=== PATIENT | female | born 1985 | race Caucasian/White ===

== ENCOUNTER 2016-12-02 18:31 | Inpatient (IN) | payer SELFPAY ==
--- NOTE | 2016-12-02 18:46 | PDOC ---
History of Present Illness <NoeTararon Escoto - Last Filed: 12/02/16 21:19> - History of Present Illness Initial Comments: 12/02/16 19:46 The patient is a 31 year old female with a past medical hx of insulin dependent diabetes who presents to the ED via EMS complaining of blood in her vomit since 1400 this afternoon. The patient reports she was driving back to her home at 1800. She notes she did not feel well and continued to vomit blood. She reports body aches and headache so she pulled over and called the ambulance. The last time she took her insulin was Thursday (4 days ago). She reports the last time she had these symptoms she was in DKA and was hospitalized. She is concerned she is in DKA again. Surgical: None Allergies: NKDA <Zaida Moncada - Last Filed: 12/02/16 21:45> - General Stated Complaint: VOMITING BLOOD Time Seen by Provider: 12/02/16 18:45 Past History <Tara iLu - Last Filed: 12/02/16 21:19> <Zaida Moncada - Last Filed: 12/02/16 21:45> - Past Medical History Allergies/Adverse Reactions: Allergies Allergy/AdvReac Type Severity Reaction Status Date / Time No Known Allergies Allergy Verified 12/02/16 20:13 Home Medications: Ambulatory Orders Insulin Glargine,Hum.rec.anlog [Lantus (nf)] 32 units SQ HS 12/02/16 Insulin Lispro [Humalog] 0 unit SQ ASDIR 12/02/16 Insulin Lispro [Humalog] 5 unit SQ AC 12/02/16 Insulin Lispro [Humalog] 5 unit SQ HS 12/02/16 Review of Systems - Review of Systems Able to Perform ROS?: Yes Comments:: 12/02/16 19:47 CONSTITUTIONAL: +Body aches. Absent: fever, chills, diaphoresis, generalized weakness, malaise, loss of appetite HEENT: Absent: rhinorrhea, nasal congestion, throat pain, throat swelling, difficulty swallowing, mouth swelling, ear pain, eye pain, visual Changes CARDIOVASCULAR: Absent: chest pain, syncope, palpitations, irregular heart rate, lightheadedness , peripheral edema RESPIRATORY: Absent: cough, shortness of breath, dyspnea with exertion, orthopnea, wheezing, stridor, hemoptysis GASTROINTESTINAL: +Vomiting. Absent: abdominal pain, abdominal distension, nausea, vomiting, diarrhea, constipation, melena, hematochezia GENITOURINARY: Absent: dysuria, frequency, urgency, hesitancy, hematuria, flank pain, genital pain MUSCULOSKELETAL: Absent: myalgia, arthralgia, joint swelling SKIN: Absent: rash, itching, pallor NEUROLOGIC: +Headache. Absent: focal weakness or paresthesias, dizziness, unsteady gait, seizure, mental status changes, bladder or bowel incontinence PSYCHIATRIC: Absent: anxiety, depression, suicidal or homicidal ideation, hallucinations. <Zaida Moncada - Last Filed: 12/02/16 21:45> *Physical Exam - Physical Exam Comments: 12/02/16 19:47 GENERAL: Well developed, well nourished. Awake and alert. No acute distress. HEENT: +Dry mucous membranes. Normocephalic, atraumatic. PERRLA, EOMI. No conjunctival pallor. Sclera are non-icteric. Oropharynx is clear. NECK: Supple. Full ROM. No JVD. Carotid pulses 2+ and symmetric, without bruits. No thyromegaly. No lymphadenopathy. CARDIOVASCULAR: Regular rate and rhythm. No murmurs, rubs, or gallops. Distal pulses are 2+ and symmetric. PULMONARY: No evidence of respiratory distress. Lungs clear to auscultation bilaterally. No wheezing, rales or rhonchi. ABDOMINAL: Soft. Non-tender. Non-distended. No rebound or guarding. No organomegaly. Normoactive bowel sounds. MUSCULOSKELETAL Normal range of motion at all joints. No bony deformities or tenderness. No CVA tenderness. EXTREMITIES: No cyanosis. No clubbing. No edema. No calf tenderness. SKIN: Warm and dry. Normal capillary refill. No rashes. No jaundice. NEUROLOGICAL: Alert, awake, appropriate. Cranial nerves 2-12 intact. No deficits to light touch and temperature in face, upper extremities and lower extremities. No motor deficits in the in face, upper extremities and lower extremities. PSYCHIATRIC: Cooperative. Good eye contact. Appropriate mood and affect. <Zaida Moncada - Last Filed: 12/02/16 21:45> ED Treatment Course - LABORATORY CBC & Chemistry Diagram: 12/02/16 19:04 12/02/16 19:04 <Tara Liu - Last Filed: 12/02/16 21:19> - LABORATORY CBC & Chemistry Diagram: 12/02/16 19:04 12/02/16 19:04 <Zaida Moncada - Last Filed: 12/02/16 21:45> Medical Decision Making - Critical Care Time Total Critical Care Time (minutes): 40 Critical Care Statement: The care of this patient involved high complexity decision making to prevent further life threatening deterioration of the patient 's condition and/or to evalute & treat vital organ system(s) failure or risk of failure. - Medical Decision Making 12/02/16 21:[address] Lam at 21:15. Dr. Lam called at 21:19, the patients case was discussed. Dr. Lam agrees to admit the patient. <Zaida Moncada - Last Filed: 12/02/16 21:45> *DC/Admit/Observation/Transfer - Discharge Dispostion Admit: Yes <Tara Liu - Last Filed: 12/02/16 21:19> - Attestations Scribe Attestion: 12/02/16 19:46 Documentation prepared by Zaida Moncada, acting as senior medical technologist for Tara Liu MD/DO. <Zaida Moncada - Last Filed: 12/02/16 21:45> Diagnosis at time of Disposition: DKA, type 1 Qualifiers: Diabetes mellitus complication detail: without coma Qualified Code(s): E10.10 - Type 1 diabetes mellitus with ketoacidosis without coma
[2016-12-02] MEDS ORDERED: SODIUM CHLORIDE 1,000 ML IV STA ×4 (18:47→21:59)
[2016-12-02] MEDS ORDERED: ONDANSETRON 4 MG/2 ML VIAL IVPB ONE (18:47)
[2016-12-02] MEDS ORDERED: ONDANSETRON 8 MG TABLET (FP) PO ONE (19:05)
[2016-12-02 20:01] LABS: MCH 32.1 pg (25.7-33.7); MCHC 32.2 g/dl (32.0-36.0); MEAN CELL VOLUME 99.6 fl (80-96); MEAN PLT VOLUME 10.6 fl (7.5-11.1); PLATELET COUNT 265 K/MM3 (134-434); RDW 13.1 % (11.6-15.6)
[2016-12-02 20:02] LABS: URINE APPEARANCE CLEAR; URINE BILIRUBIN NEGATIVE (NEGATIVE); URINE BLOOD NEGATIVE (NEGATIVE); URINE COLOR STRAW; URINE GLUCOSE (UA) 3+ (NEGATIVE); URINE KETONE 2+ (NEGATIVE); URINE LEUK ESTERASE NEGATIVE (NEGATIVE); URINE NITRITE NEGATIVE (NEGATIVE); URINE PROTEIN NEGATIVE (NEGATIVE); URINE UROBILINOGEN NEGATIVE E.U./dl (0.2-1.0)
[2016-12-02 20:07] LABS: WHITE BLOOD COUNT 32.6 K/mm3 (4.0-10.0)
[2016-12-02 20:23] LABS: ALBUMIN 4.7 g/dl (3.4-5.0); CALCIUM 9.6 mg/dL (8.5-10.1); CREATININE 1.5 mg/dL (0.55-1.02)
[2016-12-02 20:25] LABS: TOT PROT 8.8 g/dl (6.4-8.2)
[2016-12-02] MEDS ORDERED: DEXTROSE 50%-WATER 50 ML VIAL IVPUSH ONE (20:49)
[2016-12-02] MEDS ORDERED: INSULIN REGULAR HUMAN 100 UNITS/ML *VIAL IVPUSH ONE (20:49)
[2016-12-02] MEDS ORDERED: DEXTROSE 50%-WATER 50 ML DISP.SYRIN ONE (20:51)
[2016-12-02] MEDS ORDERED: INSULIN (NOVOLOG) ASPART 100 UNITS/ML 10ML VIAL ONE (20:52)
[2016-12-02 20:54] LABS: PLATELET COMMENT2 NO CLOTTING DETECTED; PLATELET COMMENT3 FEW LARGE PLTS; PLATELET ESTIMATE ADEQUATE (NORMAL)
[2016-12-02 21:38] LABS: ARTERIAL BLD GAS O2 SATURATION 96.8 % (90-98.9)
[2016-12-02 21:39] LABS: ALLENS TEST POSITIVE; ART PUNCT SITE LEFT RADIAL; ARTERIAL BLOOD GAS pH 7.12 (7.35-7.45); PT. ON O2? NO; TYPE OF O2 ROOM AIR
[2016-12-02] MEDS ORDERED: INSULIN REGULAR 100 UNITS in SODIUM CHLORIDE 99 ML IVPB SCH (22:00)
--- NOTE | 2016-12-02 23:14 | CONSULT ---
Consult Consult Specialty:: Pulm/CC - History of Present Illness History of Present Illness: Pt is a 31yr old woman with PMHx of DM1. Per report pt has not taken her insulin since 11/28. Now presenting with DKA symptoms and blood streaked vomit. In the ER found to have WBC 32.6 (6 bands), h/h 16.2/50.3 K 7.2 (hemolyzed) BUN/ Cr 22/1.5, serum glucose 536 3+ glucose in urine with 2+ ketones and 3+ serum acetone. Initial vital signs 117/87, HR 147, 98.7, RR 35, 98% ABG 7.12/12.8/123/ 4. Pt started on IVF, given insulin and admitted to the ICU for further management. Upon initial assessment in the ER pt tachypneic and endorsing difficulty with breathing. When later assessed in the ICU pt on NC and endorsing improved breathing without current chest pain/headache. 114/69, HR 120s (sinus on tele) 100% on NC, RR 24. - History Source History Provided By: Patient, Medical Record Limitations to Obtaining History: No Limitations - Smoking History Smoking history: Current every day smoker Aproximately how many cigarettes per day: 30 Home Medications - Allergies Allergies/Adverse Reactions: Allergies Allergy/AdvReac Type Severity Reaction Status Date / Time No Known Allergies Allergy Verified 12/02/16 20:13 - Home Medications Home Medications: Ambulatory Orders Insulin Glargine,Hum.rec.anlog [Lantus (nf)] 32 units SQ HS 12/02/16 Insulin Lispro [Humalog] 0 unit SQ ASDIR 12/02/16 Insulin Lispro [Humalog] 5 unit SQ AC 12/02/16 Insulin Lispro [Humalog] 5 unit SQ HS 12/02/16 Review of Systems - Review of Systems Cardiovascular: reports: Other (chest "fullness" now resolved) Respiratory: reports: SOB Gastrointestinal: reports: Vomiting, Vomiting Blood (blood streaked, no coffee ground) Genitourinary: denies: Dysuria Neurological: denies: Headache Physical Exam Vital Signs: Vital Signs Period Temp Pulse Resp BP Sys/Cedeno Pulse Ox Last 24 Hr 98 F-98.7 F 125-147 16-35 114-120/69-87 98-98 Intake & Output 04/0212/01/16 12/02/16 12/03/16 23:59 23:59 23:59 23:59 Weight 107 lb 5 oz Constitutional: Yes: Well Nourished, Other (in ER in mild/mod distress, now in NAD) Eyes: Yes: WNL, PERRL HENT: Yes: Other ("hairy" black tongue consistent with thrush. dry mucosa/lips) Cardiovascular: Yes: Tachycardia (sinus on tele), S1, S2 Respiratory: Yes: On Nasal O2, Tachypnea. No: Rhonchi, Wheezes Gastrointestinal: Yes: Normal Bowel Sounds, Soft. No: Tenderness ...Rectal Exam: Yes: Deferred Renal/: Yes: Other. No: CVA Tenderness - Left, CVA Tenderness - Right Extremities: Yes: WNL Edema: No Peripheral Pulses WNL: (+2 bilateral pedal pulses) Neurological: Yes: WNL Psychiatric: Yes: WNL Labs: Abnormal Lab Results 12/02/16 12/02/16 12/02/16 19:04 19:04 19:04 WBC 32.6 H* Hgb 16.2 H Hct 50.3 H MCV 99.6 H Neutrophils % 89.0 H Lymphocytes % 1.0 L ABG pH ABG pCO2 at Pt Temp ABG pO2 at Pt Temp ABG HCO3 ABG Base Excess Sodium 127 L Potassium 7.2 H* Chloride 86 L Carbon Dioxide 8 L Anion Gap 33 H BUN 22 H Creatinine 1.5 H Random Glucose 536 H* Lactic Acid Calcium AST 12 L Total Protein 8.8 H Urine Glucose (UA) 3+ H Urine Ketones 2+ H Acetone, Qual 12/02/16 12/02/16 12/02/16 19:04 21:24 22:31 WBC Hgb Hct MCV Neutrophils % Lymphocytes % ABG pH 7.12 L* ABG pCO2 at Pt Temp 12.8 L* ABG pO2 at Pt Temp 123.0 H ABG HCO3 4.0 L* ABG Base Excess -25.0 L* Sodium Potassium 5.9 H Chloride Carbon Dioxide 8 L Anion Gap 27 H BUN 19 H Creatinine 1.2 H Random Glucose 383 H* D Lactic Acid Calcium 8.1 L AST Total Protein Urine Glucose (UA) Urine Ketones Acetone, Qual Positive large 3+ H 12/02/16 22:31 WBC Hgb Hct MCV Neutrophils % Lymphocytes % ABG pH ABG pCO2 at Pt Temp ABG pO2 at Pt Temp ABG HCO3 ABG Base Excess Sodium Potassium Chloride Carbon Dioxide Anion Gap BUN Creatinine Random Glucose Lactic Acid 2.996 H* Calcium AST Total Protein Urine Glucose (UA) Urine Ketones Acetone, Qual Assessment/Plan Pt is a 31yr old woman with PMHx of DM1. Now in the ICU for management of DKA and leukocytosis. Pulm: -o2 support prn -Incentive spirometer ID: leukocytosis, likely reactionary -f/u cultures -Empiric Ceftriaxone started -Unlikely pulm infectious process but given significant leukocytosis will get chest xray to rule out -f/u lactic acid Endo: -Insulin drip, will bridge to subq when glucose <250, anion gap closed and tolerating PO -BGM -Advance diet as tolerated -Consult Renal -Aggressive IVF + K if needed (currently hypERkalemic) -Monitor electrolytes -I/Os -Monitor BUN/Cr, elevation likely secondary to dehydration Cardiac: pt endorsed now resolved "chest fullness" -f/u enzymes -Tachycardia likely in setting of dehydration, continue to monitor Neuro -Pain management prn Social: -Access for social work need as pt with known DM1 and did not take insulin in 4 days Prophylactic -DVT -Nicotine patch \\
[2016-12-02] MEDS ORDERED: SODIUM CHLORIDE 1,000 ML IV SCH (23:15)
[2016-12-02 23:23] VITALS: BMI 19.6
[2016-12-02] MEDS ORDERED: NICOTINE 21 MG/24 HOURS TOPICAL PATCH TD ONE (23:30)
[2016-12-02] MEDS ORDERED: CEFTRIAXONE 50 ML ONE (23:46)
--- NOTE | 2016-12-02 23:52 | PN ---
<Marcus Cuellar - Last Filed: 12/03/16 03:10> Teaching Attending Note ATTENDING PHYSICIAN STATEMENT I saw and evaluated the patient. I reviewed the resident's note and discussed the case with the resident. I agree with the resident's findings and plan as documented. SUBJECTIVE: The patient is a 31 year old female with a past medical history of insulin dependent diabetes who presented to the emergency department via EMS for further evaluation of hematemesis since 1400 yesterday. The patient noted that her first episode of vomiting was partially digested food followed by episodes of bile and then episodes of hematemesis. The patient reported she was driving back to her home at 1800 but her symptoms worsened so she pulled over and called an ambulance. She stated that she took Pepto Bismol to treat symptoms with no relief. She noted that the last time she took her insulin was 11/30/16 ( 3 days ago). She noted that she has been hospitalized for DKA three times before after presenting with similar symptoms. She denied any sickness leading up to her current illness. PAST MEDICAL HISTORY: Diabetes (takes Lantus 32 units before bed+Humalog x4 daily+sliding scale before meals) PAST SURGICAL HISTORY: No significant history reported FAMILY HISTORY: No pertinent history reported SOCIAL HISTORY: Current 1 ppd smoker. Alcohol consumption more than socially. Former cocaine user. MEDICATIONS: Reviewed ALLERGIES: As per nursing notes OBJECTIVE: Vital Signs: Last Vital Signs Temp Pulse Resp BP Pulse Ox 99.3 F 123 H 22 108/61 98 12/03/16 02:00 12/03/16 02:00 12/03/16 02:00 12/03/16 02:00 12/02/16 22:54 Physical Exam: GENERAL: Awake, alert, and fully oriented, in no acute distress HEENT: Atraumatic. PERRLA, EOMI. Dry mucosa. No JVD LUNGS: No distress, speaks full sentences, clear to auscultation bilaterally HEART: (+) Regular rhythm, tachycardic, normal S1 and S2, no murmurs, rubs or gallops, peripheral pulses normal and equal bilaterally. ABDOMEN: Soft, nontender, normoactive bowel sounds. No guarding, no rebound. No masses EXTREMITIES: Normal inspection, Normal range of motion, no edema. No clubbing or cyanosis. NEUROLOGICAL: Cranial nerves II through XII grossly intact. Normal speech, normal gait, no focal sensorimotor deficits SKIN: Warm, Dry, normal turgor, no rashes or lesions noted. Labs: CBCD WBC 32.6 K/mm3 (4.0-10.0) H* 12/02/16 19:04 RBC 5.05 M/mm3 (3.60-5.2) 12/02/16 19:04 Hgb 16.2 GM/dL (10.7-15.3) H 12/02/16 19:04 Hct 50.3 % (32.4-45.2) H 12/02/16 19:04 MCV 99.6 fl (80-96) H 12/02/16 19:04 MCHC 32.2 g/dl (32.0-36.0) 12/02/16 19:04 RDW 13.1 % (11.6-15.6) 12/02/16 19:04 Plt Count 265 K/MM3 (134-434) 12/02/16 19:04 MPV 10.6 fl (7.5-11.1) 12/02/16 19:04 CMP Sodium 137 mmol/L (136-145) 12/03/16 01:00 Potassium 4.8 mmol/L (3.5-5.1) 12/03/16 01:00 Chloride 104 mmol/L (98-107) 12/03/16 01:00 Carbon Dioxide 14 mmol/L (21-32) L D 12/03/16 01:00 Anion Gap 19 (8-16) H 12/03/16 01:00 BUN 14 mg/dL (7-18) D 12/03/16 01:00 Creatinine 1.0 mg/dL (0.55-1.02) 12/03/16 01:00 Creat Clearance w eGFR 40.77 (>60) 12/02/16 19:04 Calcium 7.6 mg/dL (8.5-10.1) L 12/03/16 01:00 Total Bilirubin 1.0 mg/dL (0.2-1.0) 12/02/16 19:04 AST 12 U/L (15-37) L 12/02/16 19:04 ALT 22 U/L (12-78) 12/02/16 19:04 Alkaline Phosphatase 108 U/L (45-117) 12/02/16 19:04 Total Protein 8.8 g/dl (6.4-8.2) H 12/02/16 19:04 Albumin 4.7 g/dl (3.4-5.0) 12/02/16 19:04 ASSESSMENT AND PLAN : The patient is a 31 year old female with a past medical history of insulin dependent diabetes who presented to the emergency department for further evaluation of hematemesis. 1. DKA secondary to non-compliance with insulin regimen. - 10 units regular insulin IV given in ED -Start regular insulin drip -Monitor chemistry Q2H -Monitor finger stick Q1H -IV NS -Chest x-ray 2. Acute kidney injury secondary to dehydration. -IVF -Monitor bun and creatinine 3. Hyponatremia secondary to hyperglycemia -IV NS -Control glucose -Monitor sodium 4. Hyperkalemia -Regular insulin IV given -IVF -Recheck potassium 5. Leukocytosis likely reactive and secondary to dehydration -IVF -treat DKA -Monitor WBC Admit to ICU. Documentation prepared by Marcus Cuellar, acting as medical affairs specialist for Dr. Cesar Lam MD. <Cesra Lam - Last Filed: 12/03/16 03:14> Teaching Attending Note Name of Resident: Serge Farley ATTENDING PHYSICIAN STATEMENT I saw and evaluated the patient. I reviewed the resident's note and discussed the case with the resident. I agree with the resident's findings and plan as documented.
[2016-12-02 23:53] LABS: CALCIUM 8.1 mg/dL (8.5-10.1); CREATININE 1.2 mg/dL (0.55-1.02); MAGNESIUM 2.2 mg/dL (1.8-2.4); PHOSPHOROUS 4.3 mg/dL (2.5-4.9)
[2016-12-03] MEDS ORDERED: INSULIN REGULAR HUMAN 100 UNITS/ML *VIAL IVPUSH ONE (00:03)
[2016-12-03] MEDS: NYSTATIN 500,000 UNITS/5 ML SUSPENSION PO SCH ×4 (00:07→17:26)
[2016-12-03] MEDS: CEFTRIAXONE 50 ML IVPB ONE ×2 (00:07→00:09)
[2016-12-03 00:19] LABS: TROPONIN I < 0.02 ng/ml (0.00-0.05)
--- NOTE | 2016-12-03 00:39 | HP ---
CHIEF COMPLAINT: generalized weakness and nausea HISTORY OF PRESENT ILLNESS: 31 y/o F w/PMH of IDDM presents to ER after feeling generalized weakness, nausea , and vomiting approximately 10 times this afternoon. Pt states she had been compliant with taking her insulin until this Thursday. She last took her insulin on Thursday but none yesterday or today. She was driving home from her mother's house when she felt weak and nausea and felt as though they were similar symptoms she had in the past for DKA. She threw up approximately 10 ten times with the last 3 episodes having some specks of blood. She did not make it home and had pulled over to the side of road due to these symptoms and called EMS. She also felt like she had labored breathing. She last had a DKA 3 years ago and including that episode has been hospitalized for DKA 3 times in the past. She also c/o some chest tightness but doesnt describe it as pain or pressure. She also c/o palpitations and as if her heart is racing. She denies loss of consciousness, diarrhea, constipation, dysuria, fevers, or chills. She currently feels like her breathing is still labored but her nausea has improved. 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 Family History: HTN in mother Allergies No Known Allergies Allergy (Verified 12/02/16 20:13) HOME MEDICATIONS: Home Medications Medication Instructions Recorded Insulin Glargine,Hum.rec.anlog 32 units SQ HS 12/02/16 [Lantus (nf)] Insulin Lispro [Humalog] 0 unit SQ ASDIR 12/02/16 Insulin Lispro [Humalog] 5 unit SQ AC 12/02/16 Insulin Lispro [Humalog] 5 unit SQ HS 12/02/16 REVIEW OF SYSTEMS CONSTITUTIONAL: generalized weakness, malaise Absent: fever, chills, diaphoresis, loss of appetite, weight change HEENT: Absent: rhinorrhea, nasal congestion, throat pain, throat swelling, difficulty swallowing, mouth swelling, ear pain, eye pain, visual changes CARDIOVASCULAR: palpitations, irregular heart rate Absent: chest pain, syncope, lightheadedness, peripheral edema RESPIRATORY: sob Absent: cough, dyspnea with exertion, orthopnea, wheezing, stridor, hemoptysis GASTROINTESTINAL: nausea, vomiting Absent: abdominal pain, abdominal distension, diarrhea, constipation, melena, hematochezia GENITOURINARY: Absent: dysuria, frequency, urgency, hesitancy, hematuria, flank pain, genital pain MUSCULOSKELETAL: Absent: myalgia, arthralgia, joint swelling, back pain, neck pain SKIN: Absent: rash, itching, pallor HEMATOLOGIC/IMMUNOLOGIC: Absent: easy bleeding, easy bruising, lymphadenopathy, frequent infections ENDOCRINE: Absent: unexplained weight gain, unexplained weight loss, heat intolerance, cold intolerance NEUROLOGIC: Absent: headache, focal weakness or paresthesias, dizziness, unsteady gait, seizure, mental status changes, bladder or bowel incontinence PSYCHIATRIC: Absent: anxiety, depression, suicidal or homicidal ideation, hallucinations. PHYSICAL EXAMINATION Vital Signs - 24 hr 12/02/16 12/03/16 22:54 00:30 Pulse Rate 143 H Pulse Rate [ 128 H Left] Respiratory 30 H 18 Rate Blood Pressure 115/64 Blood Pressure 120/75 [Arm] O2 Sat by Pulse 98 Oximetry (%) GENERAL: Awake, alert, and fully oriented, has some difficulty speaking due to labored breathing. HEAD: Normal with no signs of trauma. EYES: extraocular movements intact, sclera anicteric, conjunctiva clear. No lid lag. EARS, NOSE, THROAT: Ears normal, nares patent, Dry mucous membranes. NECK: Normal range of motion LUNGS: Breath sounds equal, clear to auscultation bilaterally. labored breathing , sob HEART: tachycardic, normal S1 and S2 without murmur, rub or gallop. ABDOMEN: Soft, nontender, not distended, normoactive bowel sounds, no guarding, no rebound, no masses. No hepatomegaly or splenomegaly. MUSCULOSKELETAL: Normal range of motion at all joints. No bony deformities or tenderness. No CVA tenderness. UPPER EXTREMITIES: 2+ pulses, warm, well-perfused. No cyanosis. No clubbing. No peripheral edema. LOWER EXTREMITIES: 2+ pulses, warm, well-perfused. No calf tenderness. No peripheral edema. NEUROLOGICAL: Cranial nerves II-XII intact. Normal speech. Normal gait. PSYCHIATRIC: Cooperative. Good eye contact. Appropriate mood and affect. SKIN: Warm, dry, normal turgor, no rashes or lesions noted, normal capillary refill. Laboratory Results - last 24 hr 12/02/16 12/02/16 12/02/16 21:24 22:31 22:31 Puncture Site Left radial ABG pH 7.12 L* ABG pCO2 at Pt Temp 12.8 L* ABG pO2 at Pt Temp 123.0 H ABG HCO3 4.0 L* ABG O2 Sat (Measured) 96.8 ABG O2 Content 18.1 ABG Base Excess -25.0 L* Jose Daniel Test Positive O2 Delivery Device Room air Oxygen Flow Rate No PEEP 0.0 Sodium 136 Potassium 5.9 H Chloride 101 D Carbon Dioxide 8 L Anion Gap 27 H BUN 19 H Creatinine 1.2 H POC Glucometer Random Glucose 383 H* D Lactic Acid 2.996 H* Calcium 8.1 L Phosphorus 4.3 Magnesium 2.2 Creatine Kinase Troponin I 12/02/16 12/02/16 22:35 23:08 Puncture Site ABG pH ABG pCO2 at Pt Temp ABG pO2 at Pt Temp ABG HCO3 ABG O2 Sat (Measured) ABG O2 Content ABG Base Excess Jose Daniel Test O2 Delivery Device Oxygen Flow Rate PEEP Sodium Potassium Chloride Carbon Dioxide Anion Gap BUN Creatinine POC Glucometer [phone] Random Glucose Lactic Acid Calcium Phosphorus Magnesium Creatine Kinase 58 Troponin I < 0.02 Active Medications Chlorhexidine Gluconate (Hibiclens For Decolonization -) 1 applic TP HS GENE Insulin Human Regular 100 (units/ Sodium Chloride) 100 mls @ 5.35 mls/hr IVPB TITR GENE; 0.1 UNITS/KG/HR PRN Reason: Protocol Last Titration: 12/03/16 01:42 Dose: 0.04 units/kg/hr Sodium Chloride (Normal Saline -) 1,000 mls @ 250 mls/hr IV ASDIR GENE Last Admin: 12/02/16 23:06 Dose: 250 mls/hr Ceftriaxone Sodium (Rocephin 1gm Ivpb (Pre-Docked)) 50 mls @ 100 mls/hr IVPB DAILY@2200 [facility] Mupirocin (Bactroban Ointment (For Decolonization) -) 1 applic NS BID GENE Stop: 12/08/16 09:59 Nicotine (Nicoderm Patch -) 21 mg TD DAILY@2200 [facility] Nystatin (Nystatin Oral Suspension -) 500,000 units PO Q6HPO [facility] Last Admin: 12/03/16 00:07 Dose: 500,000 units ASSESSMENT/PLAN: 31 y/o F w/PMH of IDDM presents to ER after feeling generalized weakness, nausea , and vomiting approximately 10 times this afternoon. Admitted to ICU for DKA. -DKA -Insulin drip, ns @ 250 ml/hr -monitor anion gap, k+, glucose q2h -BGMs q1h -monitor lactic acid, phos, mg -monitor for arrhythmia and chest pain/pressure -pt needs education on better compliance with medications at home -Metabolic acidosis -secondary to dka -ABG in AM to monitor -treatment of DKA to resolve metabolic acidosis -Leukocytosis -32.6 WBC, monitor -f/u UCx, BCx, CXR in AM -most likely reactive to DKA -LEO -BUN/Cr on presentation 22/1.5 now at 14/1.0 -resolving, monitor -DVT ppx -SCDs -FEN -NS @ 150 ml/hr -hyponatremia, hyperkalemia, hypochloremia on presentation - now resolved, monitor -NPO -Dispo -Admit to ICU Problem List - Problem (1) DKA, type 1 Code(s): E10.10 - TYPE 1 DIABETES MELLITUS WITH KETOACIDOSIS WITHOUT COMA Qualifiers: Diabetes mellitus complication detail: without coma Qualified Code(s): E10.10 - Type 1 diabetes mellitus with ketoacidosis without coma (2) Metabolic acidosis Code(s): E87.2 - ACIDOSIS (3) Leukocytosis Code(s): D72.829 - ELEVATED WHITE BLOOD CELL COUNT, UNSPECIFIED (4) LEO (acute kidney injury) Code(s): N17.9 - ACUTE KIDNEY FAILURE, UNSPECIFIED Visit type - Emergency Visit Emergency Visit: Yes ED Registration Date: 12/02/16 Care time: The patient presented to the Emergency Department on the above date and was hospitalized for further evaluation of their emergent condition. - New Patient This patient is new to me today: Yes Date on this admission: 12/03/16 - Critical Care Critical Care patient: Yes Total Critical Care Time (in minutes): 40 Critical Care Statement: The care of this patient involved high complexity decision making to prevent further life threatening deterioration of the patient 's condition and/or to evalute & treat vital organ system(s) failure or risk of failure.
[2016-12-03] MEDS ORDERED: HEMOQUE TEST 1 EACH EACH ONE (01:12)
[2016-12-03] MEDS ORDERED: INSULIN DETEMIR 100 UNITS/ML MDV SQ ONE ×2 (02:03→05:39)
[2016-12-03 02:32] LABS: CALCIUM 7.6 mg/dL (8.5-10.1)
[2016-12-03 02:36] LABS: MAGNESIUM 1.9 mg/dL (1.8-2.4); PHOSPHOROUS 2.1 mg/dL (2.5-4.9)
[2016-12-03] MEDS ORDERED: SODIUM PHOSPHATE - 15 MM in SODIUM CHLORIDE 250 ML IVPB ONE (02:41)
[2016-12-03] MEDS ORDERED: D5-1/2NS+40 MEQ KCL - 1,000 ML IV SCH (05:30)
[2016-12-03] MEDS ORDERED: SODIUM CHLORIDE 1,000 ML IV SCH ×2 (05:45→11:33)
[2016-12-03 06:16] LABS: MCH 33.1 pg (25.7-33.7); MCHC 34.6 g/dl (32.0-36.0); MEAN CELL VOLUME 95.8 fl (80-96); MEAN PLT VOLUME 10.3 fl (7.5-11.1); PLATELET COUNT 221 K/MM3 (134-434); RDW 12.8 % (11.6-15.6); WHITE BLOOD COUNT 16.9 K/mm3 (4.0-10.0)
[2016-12-03 06:38] LABS: ALBUMIN 3.2 g/dl (3.4-5.0); ANION GAP 13 (8-16); CALCIUM 7.3 mg/dL (8.5-10.1); CO2 17 mmol/L (21-32); CREATININE 0.8 mg/dL (0.55-1.02); GLUCOSE,RANDOM 156 mg/dL (74-106); SGOT/AST 6 U/L (15-37); SGPT/ALT 14 U/L (12-78)
[2016-12-03 06:40] LABS: ALK PHOS 64 U/L (45-117); BILIRUBIN,TOTAL 0.3 mg/dL (0.2-1.0); TOT PROT 5.8 g/dl (6.4-8.2)
[2016-12-03] MEDS: INSULIN SLIDING SCALE (NOVOLOG) 1 VIAL SQ SCH ×3 (06:58→17:28)
[2016-12-03 07:41] LABS: ARTERIAL BLD GAS O2 SATURATION 97.1 % (90-98.9); ARTERIAL BLOOD GAS BASE EXCESS -8.2 meq/l (-2-2); ARTERIAL BLOOD GAS HCO3 16.6 meq/L (22-26); ARTERIAL BLOOD GAS PO2 91.6 mmHg (80-100); ARTERIAL BLOOD GAS pH 7.32 (7.35-7.45)
[2016-12-03 07:42] LABS: ALLENS TEST POSITIVE; ART PUNCT SITE LEFT RADIAL; LPM/O2% 21%; PT. ON O2? NO
[2016-12-03 07:43] LABS: TYPE OF O2 ROOM AIR
[2016-12-03 08:02] LABS: PHOSPHOROUS 3.3 mg/dL (2.5-4.9)
[2016-12-03] MEDS ORDERED: ONDANSETRON 4 MG/2 ML VIAL IVPB PRN (08:09)
--- NOTE | 2016-12-03 08:30 | PN ---
Physical Exam: SUBJECTIVE: Patient seen and examined 31 Y old female admitted for DKA. She was not taking her insulin since thursday. patient sitting comfartably in chair. stets nausea, vomiting, pain abdomen improved. Reports some discomfort in abdomen. denies chest pain, sob, palpitations. anion gap closed patient on sliding scale novalog ( got 2 units around 6:00am )and levemir (got 16 unit around 6:00 am.) patient is off insulin drip. OBJECTIVE: Vital Signs Period Temp Pulse Resp BP Sys/Cedeno Pulse Ox Last 24 Hr 99.3 F 105-143 17-30 99-120/56-75 98 GENERAL: The patient is awake, alert, and fully oriented, in no acute distress. HEAD: Normal with no signs of trauma. EYES: PERRL, extraocular movements intact, conjunctiva clear. No ptosis. ENT: Ears normal, nares patent, oropharynx clear without exudates, dry mucous membranes. NECK: Trachea midline, full range of motion, supple. LUNGS: Breath sounds equal, clear to auscultation bilaterally, no wheezes, no crackles, no accessory muscle use. HEART: s1s2 normal, no murmur ABDOMEN: Soft, nontender, nondistended, normoactive bowel sounds, no guarding, no rebound, EXTREMITIES: 2+ pulses, warm, well-perfused, no edema. NEUROLOGICAL: Cranial nerves II through XII grossly intact. Normal speech, PSYCH: Normal mood, normal affect. SKIN: Warm, dry, Laboratory Results - last 24 hr 12/02/16 12/02/16 12/02/16 21:24 22:31 22:31 WBC RBC Hgb Hct MCV MCHC RDW Plt Count MPV Puncture Site Left radial ABG pH 7.12 L* ABG pCO2 at Pt Temp 12.8 L* ABG pO2 at Pt Temp 123.0 H ABG HCO3 4.0 L* ABG O2 Sat (Measured) 96.8 ABG O2 Content 18.1 ABG Base Excess -25.0 L* Jose Daniel Test Positive O2 Delivery Device Room air Oxygen Flow Rate No PEEP 0.0 Sodium 136 Potassium 5.9 H Chloride 101 D Carbon Dioxide 8 L Anion Gap 27 H BUN 19 H Creatinine 1.2 H Creat Clearance w eGFR POC Glucometer Random Glucose 383 H* D Lactic Acid 2.996 H* Calcium 8.1 L Phosphorus 4.3 Magnesium 2.2 Total Bilirubin AST ALT Alkaline Phosphatase Creatine Kinase Troponin I Total Protein Albumin 12/02/16 12/02/16 12/03/16 22:35 23:08 00:24 WBC RBC Hgb Hct MCV MCHC RDW Plt Count MPV Puncture Site ABG pH ABG pCO2 at Pt Temp ABG pO2 at Pt Temp ABG HCO3 ABG O2 Sat (Measured) ABG O2 Content ABG Base Excess Jose Daniel Test O2 Delivery Device Oxygen Flow Rate PEEP Sodium Potassium Chloride Carbon Dioxide Anion Gap BUN Creatinine Creat Clearance w eGFR POC Glucometer 359.35207 274.74989 Random Glucose Lactic Acid Calcium Phosphorus Magnesium Total Bilirubin AST ALT Alkaline Phosphatase Creatine Kinase 58 Troponin I < 0.02 Total Protein Albumin 12/03/16 12/03/16 12/03/16 01:00 01:28 02:31 WBC RBC Hgb Hct MCV MCHC RDW Plt Count MPV Puncture Site ABG pH ABG pCO2 at Pt Temp ABG pO2 at Pt Temp ABG HCO3 ABG O2 Sat (Measured) ABG O2 Content ABG Base Excess Jose Daniel Test O2 Delivery Device Oxygen Flow Rate PEEP Sodium 137 Potassium 4.8 Chloride 104 Carbon Dioxide 14 L D Anion Gap 19 H BUN 14 D Creatinine 1.0 Creat Clearance w eGFR POC Glucometer 221.96756 185.62956 Random Glucose 212 H D Lactic Acid Calcium 7.6 L Phosphorus 2.1 L D Magnesium 1.9 Total Bilirubin AST ALT Alkaline Phosphatase Creatine Kinase Troponin I Total Protein Albumin 12/03/16 12/03/16 12/03/16 03:30 04:38 05:20 WBC RBC Hgb Hct MCV MCHC RDW Plt Count MPV Puncture Site ABG pH ABG pCO2 at Pt Temp ABG pO2 at Pt Temp ABG HCO3 ABG O2 Sat (Measured) ABG O2 Content ABG Base Excess Jose Daniel Test O2 Delivery Device Oxygen Flow Rate PEEP Sodium 139 Potassium 4.1 Chloride 109 H Carbon Dioxide 17 L D Anion Gap 13 BUN 10 D Creatinine 0.8 Creat Clearance w eGFR > 60 POC Glucometer 161.17254 153.53377 Random Glucose 156 H D Lactic Acid Calcium 7.3 L Phosphorus 3.3 D Magnesium 2.0 Total Bilirubin 0.3 D AST 6 L D ALT 14 D Alkaline Phosphatase 64 D Creatine Kinase Troponin I Total Protein 5.8 L D Albumin 3.2 L D 12/03/16 12/03/16 12/03/16 05:20 05:20 05:20 WBC 16.9 H D RBC 3.73 D Hgb 12.4 D Hct 35.7 D MCV 95.8 MCHC 34.6 RDW 12.8 Plt Count 221 MPV 10.3 Puncture Site ABG pH ABG pCO2 at Pt Temp ABG pO2 at Pt Temp ABG HCO3 ABG O2 Sat (Measured) ABG O2 Content ABG Base Excess Jose Daniel Test O2 Delivery Device Oxygen Flow Rate PEEP Sodium Cancelled Potassium Cancelled Chloride Cancelled Carbon Dioxide Cancelled Anion Gap Cancelled BUN Cancelled Creatinine Cancelled Creat Clearance w eGFR POC Glucometer Random Glucose Cancelled Lactic Acid 0.515 Calcium Cancelled Phosphorus Cancelled Magnesium Cancelled Total Bilirubin AST ALT Alkaline Phosphatase Creatine Kinase Troponin I Total Protein Albumin 12/03/16 12/03/16 05:44 07:20 WBC RBC Hgb Hct MCV MCHC RDW Plt Count MPV Puncture Site Left radial ABG pH 7.32 L D ABG pCO2 at Pt Temp 33.4 L D ABG pO2 at Pt Temp 91.6 D ABG HCO3 16.6 L ABG O2 Sat (Measured) 97.1 ABG O2 Content 16.8 ABG Base Excess -8.2 L Jose Daniel Test Positive O2 Delivery Device Room air Oxygen Flow Rate 21% PEEP 0.0 Sodium Potassium Chloride Carbon Dioxide Anion Gap BUN Creatinine Creat Clearance w eGFR POC Glucometer 172.29897 Random Glucose Lactic Acid Calcium Phosphorus Magnesium Total Bilirubin AST ALT Alkaline Phosphatase Creatine Kinase Troponin I Total Protein Albumin Active Medications Generic Name Dose Route Start Last Admin Trade Name Misaelq PRN Reason Stop Dose Admin Chlorhexidine Gluconate 1 applic 12/03/16 22:00 Hibiclens For Decolonization - TP HS GENE Ceftriaxone Sodium 50 mls @ 100 mls/hr 12/03/16 22:00 Rocephin 1gm Ivpb (Pre-Docked) IVPB DAILY@2200 GENE Sodium Chloride 1,000 mls @ 100 mls/hr 12/03/16 05:45 12/03/16 06:56 Normal Saline - IV 100 mls/hr ASDIR [facility] Administration Insulin Aspart 1 vial 12/03/16 07:00 12/03/16 06:58 Novolog Vial Sliding Scale - SQ 2 units TIDAC [facility] Administration Protocol Insulin Detemir 16 units 12/03/16 22:00 Levemir Vial SQ BID GENE Mupirocin 1 applic 12/03/16 10:00 Bactroban Ointment (For Decolonization) - NS 12/08/16 09:59 BID GENE Nicotine 21 mg 12/03/16 22:00 Nicoderm Patch - TD DAILY@2200 GENE Nystatin 500,000 units 12/03/16 00:00 12/03/16 06:58 Nystatin Oral Suspension - PO 500,000 units Q6HPO [facility] Administration Ondansetron HCl 4 mg 12/03/16 08:09 Zofran Injection IVPB Q8H PRN NAUSEA ASSESSMENT/PLAN: 31 y/o F w/PMH of IDDM presents to ER after feeling generalized weakness, nausea , and vomiting approximately 10 times this afternoon. Admitted to ICU for DKA. -DKA anion gap closed on novalog sliding scale on levemir 16 unit bid monitor blood sugar diabetic diet monitor vitals monitor intake/ output K 4.1 on IV fluid NS. -Leukocytosis wbc decreased to 16 follow blood and urine culture on ceftriaxone 1gm iv daily CXr reviewed Vomiting/ nausea -LEO improved after IV fluid could be prerenal -DVT ppx - lovenox 40 sq Gi pro : protonix 40 mg po daily -FEN NS 100ml/hr electrolyte: repaet in am nutrition ; diabetic diet Dispo- transfer to med surg Visit type - Emergency Visit Emergency Visit: Yes ED Registration Date: 12/02/16 Care time: The patient presented to the Emergency Department on the above date and was hospitalized for further evaluation of their emergent condition. - New Patient This patient is new to me today: Yes Date on this admission: 12/03/16 - Critical Care Critical Care patient: Yes Total Critical Care Time (in minutes): 45 Critical Care Statement: The care of this patient involved high complexity decision making to prevent further life threatening deterioration of the patient 's condition and/or to evalute & treat vital organ system(s) failure or risk of failure.
[2016-12-03 10:36] LABS: CALCIUM 7.4 mg/dL (8.5-10.1); CREATININE 0.7 mg/dL (0.55-1.02)
--- NOTE | 2016-12-03 11:19 | EKG ---
Test Reason : Blood Pressure : / mmHG Vent. Rate : 128 BPM Atrial Rate : 128 BPM P-R Int : 112 ms QRS Dur : 068 ms QT Int : 312 ms P-R-T Axes : 057 068 048 degrees QTc Int : 455 ms SINUS TACHYCARDIA POSSIBLE LEFT ATRIAL ENLARGEMENT BORDERLINE ECG NO PREVIOUS ECGS AVAILABLE Confirmed by IFRAH YOUNGBLOOD, KELLY ([id number]) on 12/03/2016 11:19:27 AM Referred By: MYNOR Confirmed By:KELLY RG MD
[2016-12-03 11:20] LABS: CALCIUM 7.5 mg/dL (8.5-10.1); CREATININE 0.8 mg/dL (0.55-1.02)
[2016-12-03] MEDS: MUPIROCIN 2% TOPICAL OINTMENT FOR DECOLONIZATION NS SCH ×2 (11:45→21:36)
[2016-12-03 13:38] LABS: CALCIUM 8.1 mg/dL (8.5-10.1); CREATININE 0.8 mg/dL (0.55-1.02)
--- NOTE | 2016-12-03 15:31 | PN ---
Teaching Attending Note Name of Resident: Alessandro Kearney ATTENDING PHYSICIAN STATEMENT I saw and evaluated the patient. I reviewed the resident's note and discussed the case with the resident. I agree with the resident's findings and plan as documented. SUBJECTIVE: Pt seen and examined in the ICU. AM bloodwork showing anion gap closing, transitioned to long acting insulin. Some queasiness but denies vomiting. No fevers or chills. OBJECTIVE: Last Vital Signs Temp Pulse Resp BP Pulse Ox 97.0 F L 100 H 19 97/63 100 12/03/16 10:00 12/03/16 12:00 12/03/16 12:00 12/03/16 12:00 12/03/16 08:52 Intake & Output 11/30/16 12/01/16 12/02/16 12/03/16 23:59 23:59 23:59 23:59 Intake Total 250 3280 Balance 250 3280 Weight 107 lb 5 oz 109 lb 12.8 oz Gen: listless but in NAD Heart: tachycardic, regular Lung: decreased breath sounds at the bases Abd: soft, nontender Ext: no edema CBC, BMP 12/03/16 05:20 12/03/16 14:15 Active Medications Chlorhexidine Gluconate (Hibiclens For Decolonization -) 1 applic TP HS GENE Enoxaparin Sodium (Lovenox -) 40 mg SQ DAILY [facility] Ceftriaxone Sodium (Rocephin 1gm Ivpb (Pre-Docked)) 50 mls @ 100 mls/hr IVPB DAILY@2200 [facility] Sodium Chloride (Normal Saline -) 1,000 mls @ 150 mls/hr IV ASDIR [facility] Last Admin: 12/03/16 11:47 Dose: 150 mls/hr Insulin Aspart (Novolog Vial Sliding Scale -) 1 vial SQ TIDAC [facility] PRN Reason: Protocol Last Admin: 12/03/16 11:45 Dose: 2 units Insulin Detemir (Levemir Vial) 16 units SQ BIDAC [facility] Mupirocin (Bactroban Ointment (For Decolonization) -) 1 applic NS BID GENE Stop: 12/08/16 09:59 Last Admin: 12/03/16 11:45 Dose: Not Given Nicotine (Nicoderm Patch -) 21 mg TD DAILY@2200 [facility] Nystatin (Nystatin Oral Suspension -) 500,000 units PO Q6HPO [facility] Last Admin: 12/03/16 11:48 Dose: 500,000 units Ondansetron HCl (Zofran Injection) 4 mg IVPB Q8H PRN PRN Reason: NAUSEA Pantoprazole Sodium (Protonix -) 40 mg PO DAILY [facility] ASSESSMENT AND PLAN: Diabetic Ketoacidosis improving Leukocytosis likely leukemoid reaction Smoker - titrate long acting insulin - sliding scale coverage - continue IVF - PO as tolerated - monitor BGM - monitor fever curve, WBC trend - can monitor off antibiotics - f/u cultures - OOB to chair - DVT prophylaxis - can monitor on floor
[2016-12-03 15:49] LABS: CALCIUM 7.9 mg/dL (8.5-10.1); CREATININE 0.8 mg/dL (0.55-1.02)
[2016-12-03] MEDS: INSULIN DETEMIR 100 UNITS/ML MDV SQ SCH (17:27)
[2016-12-03] MEDS ORDERED: CEFTRIAXONE 50 ML ONE (20:31)
[2016-12-03] MEDS ORDERED: CHLORHEXIDINE GLUCONATE 4% CLEANSER FOR DECOLONIZATION TP SCH (22:00)
[2016-12-03] MEDS ORDERED: CEFTRIAXONE 50 ML IVPB SCH (22:00)
[2016-12-03] MEDS ORDERED: NICOTINE 21 MG/24 HOURS TOPICAL PATCH TD SCH (22:00)
[2016-12-04] MEDS: NYSTATIN 500,000 UNITS/5 ML SUSPENSION PO SCH ×3 (00:18→12:26)
[2016-12-04 06:16] LABS: BASOPHIL 0.7 % (0-2.0); EOSINOPHIL 2.5 % (0-4.5); MCHC 34.2 g/dl (32.0-36.0); MEAN CELL VOLUME 96.7 fl (80-96); MEAN PLT VOLUME 10.5 fl (7.5-11.1); NEUTROPHILS 58.9 % (42.8-82.8); PLATELET COUNT 154 K/MM3 (134-434); WHITE BLOOD COUNT 8.1 K/mm3 (4.0-10.0)
[2016-12-04] MEDS: INSULIN SLIDING SCALE (NOVOLOG) 1 VIAL SQ SCH ×2 (06:39→11:25)
[2016-12-04] MEDS: INSULIN DETEMIR 100 UNITS/ML MDV SQ SCH (06:39)
[2016-12-04 06:45] LABS: CALCIUM 7.8 mg/dL (8.5-10.1); CREATININE 0.4 mg/dL (0.55-1.02); MAGNESIUM 1.9 mg/dL (1.8-2.4); PHOSPHOROUS 2.1 mg/dL (2.5-4.9)
[2016-12-04] MEDS ORDERED: NAPH,MB-DB/K PH,MBDB POWDER PACKET PO ONE (09:15)
[2016-12-04] MEDS ORDERED: PANTOPRAZOLE 40 MG TABLET (FP) PO SCH (10:00)
[2016-12-04] MEDS ORDERED: ENOXAPARIN NA (PORCINE) 40 MG/0.4 ML DISP.SYRIN SQ SCH (10:00)
[2016-12-04 10:37] VITALS: TEMP 98.1
[2016-12-04] MEDS: MUPIROCIN 2% TOPICAL OINTMENT FOR DECOLONIZATION NS SCH (11:22)
--- NOTE | 2016-12-04 12:06 | DS ---
Physical Exam: SUBJECTIVE: Patient seen and examined. She is oob to chair, tolerating po diet. She feels good, no nausea or vomiting. OBJECTIVE: Vital Signs Period Temp Pulse Resp BP Sys/Cedeno Pulse Ox Last 24 Hr 97.5 F-98.2 F 72-112 12-21 90-112/54-82 100-100 PE GENERAL: The patient is awake, alert, and fully oriented, in no acute distress. HEAD: Normal with no signs of trauma. EYES: PERRL, extraocular movements intact, sclera anicteric, conjunctiva clear. ENT: Ears normal, nares patent, oropharynx clear without exudates, moist mucous membranes. NECK: Trachea midline, full range of motion, supple. LUNGS: Breath sounds equal, clear to auscultation bilaterally, no wheezes, no crackles, no accessory muscle use. HEART: Regular rate and rhythm, S1, S2 without murmur, rub or gallop. ABDOMEN: Soft, nontender, nondistended, normoactive bowel sounds, no guarding, no rebound, no hepatosplenomegaly, no masses. EXTREMITIES: 2+ pulses, warm, well-perfused, no edema. NEUROLOGICAL: Cranial nerves II through XII grossly intact. Normal speech, gait not observed. PSYCH: Normal mood, normal affect. SKIN: Warm, dry, normal turgor, no rashes or lesions noted. CBCD WBC 8.1 K/mm3 (4.0-10.0) D 12/04/16 05:05 RBC 3.73 M/mm3 (3.60-5.2) 12/04/16 05:05 Hgb 12.3 GM/dL (10.7-15.3) 12/04/16 05:05 Hct 36.1 % (32.4-45.2) 12/04/16 05:05 MCV 96.7 fl (80-96) H 12/04/16 05:05 MCHC 34.2 g/dl (32.0-36.0) 12/04/16 05:05 RDW 13.0 % (11.6-15.6) 12/04/16 05:05 Plt Count 154 K/MM3 (134-434) D 12/04/16 05:05 MPV 10.5 fl (7.5-11.1) 12/04/16 05:05 CMP Sodium 142 mmol/L (136-145) 12/04/16 05:05 Potassium 3.8 mmol/L (3.5-5.1) 12/04/16 05:05 Chloride 108 mmol/L (98-107) H 12/04/16 05:05 Carbon Dioxide 25 mmol/L (21-32) D 12/04/16 05:05 Anion Gap 9 (8-16) 12/04/16 05:05 BUN 6 mg/dL (7-18) L D 12/04/16 05:05 Creatinine 0.4 mg/dL (0.55-1.02) L D 12/04/16 05:05 Creat Clearance w eGFR > 60 (>60) 12/03/16 05:20 Calcium 7.8 mg/dL (8.5-10.1) L 12/04/16 05:05 Total Bilirubin 0.3 mg/dL (0.2-1.0) D 12/03/16 05:20 AST 6 U/L (15-37) L D 12/03/16 05:20 ALT 14 U/L (12-78) D 12/03/16 05:20 Alkaline Phosphatase 64 U/L (45-117) D 12/03/16 05:20 Total Protein 5.8 g/dl (6.4-8.2) L D 12/03/16 05:20 Albumin 3.2 g/dl (3.4-5.0) L D 12/03/16 05:20 12/04/16 05:05 Phosphorus 2.1 L D Magnesium 1.9 HOSPITAL COURSE: Date of Admission:12/02/16 Date of Discharge: 12/04/16 Minutes to complete discharge: 35 Discharge Summary Reason For Visit: TYPE 1 DIABETES MELLITUS WITH KETOACIDOSIS Current Active Problems LEO (acute kidney injury) (Acute) DKA, type 1 (Acute) Leukocytosis (Acute) Metabolic acidosis (Acute) Hospital Course: Initial Hospital Course: Briefly, this 31 year old female w/PMH of IDDM presented to ER after feeling generalized weakness, nausea, and vomiting approximately 10 times this afternoon. She had been compliant with taking her insulin until this Thursday. She last took her insulin on Thursday the day before and of admission. She was driving home from her mother's house when she felt weak and nausea and felt as though they were similar symptoms she had in the past for DKA. She threw up approximately 10 ten times with the last 3 episodes having some specks of blood. She did not make it home and had pulled over to the side of road due to these symptoms and called EMS with labored breathing. She last had a DKA 3 years ago and including that episode has been hospitalized for DKA 3 times in the past. Initial Hospital Course/Progress Note/Discharge Summary by a/p: Assessment: 31 y/o F w/PMH of IDDM admitted to ICU with DKA. Plan: 1. DKA - s/p insulin gtt - Anion Gap closed - Restarted on long acting 32units lantus HS - Humulong 5 units AC - ISS ACHS per protocol - Dietary teaching done 2. Metabolic acidosis - secondary to dka - Resolved 3. Leukocytosis - Resolved, likely reactive 4. LEO - Resolved 5. Hypomagnesemia - Repleted, and resolved 6. Hypophosphatemia - Repleted k phos pks and IV Dispo: - Insulin sent to pharmacy, long and short acting - PCP follow up in 1 week - Endocrine referral enclosed - Pt aware and agrees to above plan Condition: Stable - Instructions Diet, Activity, Other Instructions: Please return to the ED for any new, persistent, or worsening symptoms. 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 or Dr Saba (referral: [phone]) Don't omit the dose of your insulin Take your insulin as prescribed Check your blood sugar regularly Referrals: Vinh Saba MD [Staff Physician] - 1 Week Disposition: HOME - Home Medications Comprehensive Discharge Medication List: Ambulatory Orders Alcohol Antiseptic Pads [Easy Touch Alcohol Prep Pads] 1 each TP ACHS #60 med..pad 12/04/16 Insulin Glargine,Hum.rec.anlog [Lantus Solostar PEN (NF)] 32 units SQ HS #1 pen 12/04/16 Insulin Lispro [Humalog] 5 unit SQ AC #1 ml 12/04/16 Insulin Lispro [Humalog] See Protocol SQ ACHS #1 vial 12/04/16 Lancets [Accu-Chek] 1 each MC ACHS #30 each 12/04/16 Miscellaneous Medical Supply [Glucometer Device] 1 each SQ ASDIR #1 kit [employer]isc[employer] [Glucometer Test Strips #50] 1 each ASDIR #1 box 12/04/16 Syringe and Needle,Insulin,1Ml [Insulin Syringe] 1 each [facility] #30 disp.syrin 12/04/16 This patient is new to me today: Yes Date on this admission: 12/04/16 Emergency Visit: Yes ED Registration Date: 12/02/16 Care time: The patient presented to the Emergency Department on the above date and was hospitalized for further evaluation of their emergent condition. Critical Care patient: Yes Total Critical Care Time (in minutes): 35 Critical Care Statement: The care of this patient involved high complexity decision making to prevent further life threatening deterioration of the patient 's condition and/or to evalute & treat vital organ system(s) failure or risk of failure. - Discharge Referral Referred to [facility] Med P.C.: No
[2016-12-04 12:25] VITALS: BP 117/77; PULSE 82
--- NOTE | 2016-12-04 12:31 | PN ---
Teaching Attending Note Name of Resident: Alessandro Kearney ATTENDING PHYSICIAN STATEMENT I saw and evaluated the patient. I reviewed the resident's note and discussed the case with the resident. I agree with the resident's findings and plan as documented. SUBJECTIVE: Pt seen and examined in the ICU. Feels at baseline. Anion gap remains closed. Tolerating PO. No nausea, vomiting or abdominal pain. No fevers or chills. OBJECTIVE: Last Vital Signs Temp Pulse Resp BP Pulse Ox 98.1 F 82 18 117/77 100 12/04/16 10:00 12/04/16 12:24 12/04/16 12:24 12/04/16 12:24 12/04/16 09:00 Intake & Output 12/01/16 12/02/16 12/03/16 12/04/16 23:59 23:59 23:59 23:59 Intake Total 250 4980 500 Balance 250 4980 500 Weight 107 lb 5 oz 109 lb 12.8 oz 106 lb 9 oz Gen: NAD at rest Heart: RRR Lung: decreased breath sounds at the bases Abd: soft, nontender Ext: no edema CBC, BMP 12/04/16 05:05 12/04/16 05:05 Active Medications Chlorhexidine Gluconate (Hibiclens For Decolonization -) 1 applic TP HS [facility] Last Admin: 12/03/16 21:36 Dose: Not Given Enoxaparin Sodium (Lovenox -) 40 mg SQ DAILY [facility] Last Admin: 12/04/16 09:45 Dose: Not Given Ceftriaxone Sodium (Rocephin 1gm Ivpb (Pre-Docked)) 50 mls @ 100 mls/hr IVPB DAILY@2200 [facility] Last Admin: 12/03/16 21:36 Dose: 100 mls/hr Insulin Aspart (Novolog Vial Sliding Scale -) 1 vial SQ TIDAC [facility] PRN Reason: Protocol Last Admin: 12/04/16 11:25 Dose: 8 unit Insulin Detemir (Levemir Vial) 16 units SQ BIDAC [facility] Last Admin: 12/04/16 06:39 Dose: 16 units Mupirocin (Bactroban Ointment (For Decolonization) -) 1 applic NS BID [facility] Stop: 12/08/16 09:59 Last Admin: 12/04/16 11:22 Dose: 1 applic Nicotine (Nicoderm Patch -) 21 mg TD DAILY@2200 [facility] Last Admin: 12/03/16 21:36 Dose: 21 mg Nystatin (Nystatin Oral Suspension -) 500,000 units PO Q6HPO [facility] Last Admin: 12/04/16 12:26 Dose: Not Given Ondansetron HCl (Zofran Injection) 4 mg IVPB Q8H PRN PRN Reason: NAUSEA Pantoprazole Sodium (Protonix -) 40 mg PO DAILY [facility] Last Admin: 12/04/16 09:45 Dose: 40 mg ASSESSMENT AND PLAN: Diabetic Ketoacidosis resolved Leukocytosis likely leukemoid reaction improving Smoker - continue long acting insulin - sliding scale coverage - PO as tolerated - monitor BGM - can monitor off antibiotics - OOB to chair - DVT prophylaxis - d/c planning
--- NOTE | 2016-12-04 12:34 | PN ---
Physical Exam: SUBJECTIVE: Patient seen and examined patient feels better accepting orally denies pain abdomen, nausea, vomiting, sob. OBJECTIVE: Vital Signs Period Temp Pulse Resp BP Sys/Cedeno Pulse Ox Last 24 Hr 97.5 F-98.2 F 72-112 12-21 90-117/54-82 100-100 GENERAL: The patient is awake, alert, and fully oriented, in no acute distress. HEAD: Normal with no signs of trauma. EYES: PERRL, extraocular movements intact, conjunctiva clear. No ptosis. ENT: Ears normal, nares patent, oropharynx clear without exudates, moist mucous membranes. NECK: Trachea midline, full range of motion, supple. LUNGS: Breath sounds equal, clear to auscultation bilaterally, no wheezes, no crackles, no accessory muscle use. HEART: s1s2 normal, no murmur ABDOMEN: Soft, nontender, nondistended, normoactive bowel sounds, no guarding, no rebound, EXTREMITIES: 2+ pulses, warm, well-perfused, no edema. NEUROLOGICAL: Cranial nerves II through XII grossly intact. Normal speech, PSYCH: Normal mood, normal affect. SKIN: Warm, dry, Laboratory Results - last 24 hr 12/03/16 12/03/16 12/03/16 06:56 11:43 12:55 WBC RBC Hgb Hct MCV MCHC RDW Plt Count MPV Neutrophils % Lymphocytes % Monocytes % Eosinophils % Basophils % Sodium 138 Potassium 3.9 Chloride 105 Carbon Dioxide 24 Anion Gap 9 BUN 10 Creatinine 0.8 POC Glucometer 226.00713 228.43443 Random Glucose 195 H Calcium 8.1 L Phosphorus Magnesium 12/03/16 12/03/16 12/03/16 14:15 17:10 21:27 WBC RBC Hgb Hct MCV MCHC RDW Plt Count MPV Neutrophils % Lymphocytes % Monocytes % Eosinophils % Basophils % Sodium 136 Potassium 4.2 Chloride 103 Carbon Dioxide 20 L Anion Gap 13 BUN 11 Creatinine 0.8 POC Glucometer 302.95603 241.05118 Random Glucose 228 H Calcium 7.9 L Phosphorus Magnesium 12/04/16 12/04/16 12/04/16 05:05 05:05 06:19 WBC 8.1 D RBC 3.73 Hgb 12.3 Hct 36.1 MCV 96.7 H MCHC 34.2 RDW 13.0 Plt Count 154 D MPV 10.5 Neutrophils % 58.9 D Lymphocytes % 31.9 D Monocytes % 6.0 Eosinophils % 2.5 Basophils % 0.7 Sodium 142 Potassium 3.8 Chloride 108 H Carbon Dioxide 25 D Anion Gap 9 BUN 6 L D Creatinine 0.4 L D POC Glucometer 131.34412 Random Glucose 123 H D Calcium 7.8 L Phosphorus 2.1 L D Magnesium 1.9 12/04/16 11:05 WBC RBC Hgb Hct MCV MCHC RDW Plt Count MPV Neutrophils % Lymphocytes % Monocytes % Eosinophils % Basophils % Sodium Potassium Chloride Carbon Dioxide Anion Gap BUN Creatinine POC Glucometer 301.28227 Random Glucose Calcium Phosphorus Magnesium Active Medications Generic Name Dose Route Start Last Admin Trade Name Freq PRN Reason Stop Dose Admin Chlorhexidine Gluconate 1 applic 12/03/16 22:00 12/03/16 21:36 Hibiclens For Decolonization - TP Not Given HS GENE Enoxaparin Sodium 40 mg 12/04/16 10:00 12/04/16 09:45 Lovenox - SQ Not Given DAILY [facility] Ceftriaxone Sodium 50 mls @ 100 mls/hr 12/03/16 22:00 12/03/16 21:36 Rocephin 1gm Ivpb (Pre-Docked) IVPB 100 mls/hr DAILY@2200 [facility] Administration Insulin Aspart 1 vial 12/04/16 07:00 12/04/16 11:25 Novolog Vial Sliding Scale - SQ 8 unit TIDAC [facility] Administration Protocol Insulin Detemir 16 units 12/03/16 16:30 12/04/16 06:39 Levemir Vial SQ 16 units BIDAC [facility] Administration Mupirocin 1 applic 12/03/16 10:00 12/04/16 11:22 Bactroban Ointment (For Decolonization) - NS 12/08/16 09:59 1 applic BID [facility] Administration Nicotine 21 mg 12/03/16 22:00 12/03/16 21:36 Nicoderm Patch - TD 21 mg DAILY@2200 [facility] Administration Nystatin 500,000 units 12/03/16 00:00 12/04/16 12:26 Nystatin Oral Suspension - PO Not Given Q6HPO [facility] Ondansetron HCl 4 mg 12/03/16 08:09 Zofran Injection IVPB Q8H PRN NAUSEA Pantoprazole Sodium 40 mg 12/04/16 10:00 12/04/16 09:45 Protonix - PO 40 mg DAILY [facility] Administration ASSESSMENT/PLAN: 31 y/o F w/PMH of IDDM presents to ER after feeling generalized weakness, nausea , and vomiting approximately 10 times this afternoon. Admitted to ICU for DKA. -DKA resolved on levemir and novalog sliding scale -Leukocytosis ( could em from leukomoid reaction ) resolved -LEO improved -DVT ppx - lovenox 40 sq Gi pro : protonix 40 mg po daily -FEN fluid : orally allowed electrolyte: in range nutrition ; diabetic diet Dispo- transfer to med surg Visit type - Emergency Visit Emergency Visit: Yes ED Registration Date: 12/02/16 Care time: The patient presented to the Emergency Department on the above date and was hospitalized for further evaluation of their emergent condition. - New Patient This patient is new to me today: No - Critical Care Critical Care patient: Yes Total Critical Care Time (in minutes): 45 Critical Care Statement: The care of this patient involved high complexity decision making to prevent further life threatening deterioration of the patient 's condition and/or to evalute & treat vital organ system(s) failure or risk of failure.
== END 2016-12-04 12:50 | disposition home or self-care (01) | DRG 638 ==
LOC: JER 18:31 → JERBED 21:22 → JICU 23:35
PROVIDERS: ADMIT Internal Medicine; ATTEND Nurse Practitioner Acute Care
DX: E10.10 Type 1 diabetes mellitus with ketoacidosis without coma (principal); E87.1 Hypo-osmolality and hyponatremia; N17.9 Acute kidney failure, unspecified; Z79.4 Long term (current) use of insulin; D72.829 Elevated white blood cell count, unspecified; F17.210 Nicotine dependence, cigarettes, uncomplicated; E86.0 Dehydration; Z91.14 Patient's other noncompliance with medication regimen; E87.5 Hyperkalemia; R00.0 Tachycardia, unspecified; E83.42 Hypomagnesemia; E83.39 Other disorders of phosphorus metabolism
CPT/HCPCS: 36415; 36600; 71010-TC; 80048; 80053; 81003; 82009; 82550; 82803; 83605; 83690; 83735; 84100; 84484; 84703; 85025; 85027; 87086; 93005; 93010; 99285-25